=== PATIENT | female | born 1970 | race Caucasian/White ===

== ENCOUNTER → 2024-06-02 07:54 | Outpatient (REF) | payer OTHER, SELFPAY | LOC: WDC 07:54 | PROVIDERS: ATTENDING PHYSICIAN Nurse Practitioner Family; REFERRING PHYSICIAN Internal Medicine | DX: Z12.31 Encounter for screening mammogram for malignant neoplasm of breast (principal); Z85.3 Personal history of malignant neoplasm of breast; D05.92 Unspecified type of carcinoma in situ of left breast; Z08 Encounter for follow-up examination after completed treatment for malignant neoplasm | CPT/HCPCS: 77063; 77067 ==

== ENCOUNTER 2025-01-26 06:26 | Day surgery (SDC) | payer OTHER, SELFPAY | END 2025-01-26 09:01 | disposition home or self-care (01) | LOC: GI 06:26 | PROVIDERS: ATTENDING PHYSICIAN Internal Medicine | DX: Z12.11 Encounter for screening for malignant neoplasm of colon (principal); Z86.0100 Personal history of colon polyps, unspecified; K64.9 Unspecified hemorrhoids | CPT/HCPCS: G0105; 88305; 88342 ==